=== PATIENT | male | born 1965 | race Caucasian/White ===

== ENCOUNTER → 2021-08-17 | Outpatient (CLI) | payer OTHER ==
--- NOTE | 2021-08-17 09:02 | KCIC ---
EXAM: CT CORONARY CALCIUM SCORING. HISTORY: Coronary risk factors. Calcium scoring is requested. Hyperlipidemia. COMPARISON: None. FINDINGS: Limited noncontrast CT of the chest was performed for coronary calcium scoring. Refer to e worksheets for full detail. *One or more of the following individualized dose reduction techniques were utilized for this examination: 1. Automated exposure control. 2. Adjustment of the mA and/or kV according to patient size. 3. Use of iterative reconstruction technique. Coronary calcium scoring is as follows: LMA: 0. LAD: 2.9. LCX: 18.8. RCA: 32.3. PDA: 0. Total: 54.0. The included portions of the chest reveal the following. Bone windows reveal no suspicious lesions. I mages of the upper abdomen reveal a 1.5 cm hypoattenuating focus in the right hepatic lobe, consisten t with a benign cyst. There are no pathologically enlarged mediastinal lymph nodes. There is no pleural or pericardial effu padmini. The heart is not enlarged. A 7 mm nodule along the right minor fissure is most likely a benign intrafissural lymph node. IMPRESSION: 1. Coronary calcium score 54.0. 2. A 7 mm nodule likely within the right minor fissure is most likely a benign intrafissural lymph no de. If there are risk factors, follow-up CT could be performed in 6-12 months. Electronically signed by: Tashi Blackman MD (08/17/2021 9:00 AM) [facility]
== END ==
LOC: KCIC CT 08:17
PROVIDERS: ATTEND Physician Assistant
DX: E78.5 Hyperlipidemia, unspecified (principal); R91.1 Solitary pulmonary nodule
CPT/HCPCS: 75571